=== PATIENT | male | born 1995 | race Caucasian/White ===

== ENCOUNTER 2024-09-13 09:35 | Outpatient (AMB) | payer MEDICARE, MEDICAID, SELFPAY ==
--- NOTE | 2024-09-13 09:41 | A.OFFPC_ITS ---
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 Transferring care from Dr Jonathan Lopez. Medical records have been requested and have not received. Electronics Engineering Manager Required: Yes Electronics Engineering Manager Language: Show Host Name: Mimi (mother) Information Interpreted: non-clinical & clinical (pt decline translators service, prefer mother to translate) Financial Analyst: Present Accompanied by: Mother Allergies No Known Allergies Allergy (Verified 09/13/24 10:01) Medication List - Last Reconciled 09/13/24 by RONNELL Garber lamotrigine 75 mg PO BID levocarnitine 330 mg PO DAILY Tobacco use date assessed: 09/13/24 Dental Screening Dental Screen Date: 09/13/24 Did you have a dental visit in the last 12 months?: No Did you have a dental problem in the last 6 months where you did not have access to dental care?: No Was dental information given to patient?: No HPI ELECTRICAL DEVELOPMENT ENGINEER- PE request HPI Details Previous PCP: Dr. Miryam Lopez Last visit:same Last PE: March 2024 Specialist: neurologist, speech therapist OBGYN:n/a Past medical history: moderate autism, cognitive delay, speech delay, carnitive deficiency Medications: lamotigine 75 (1/2x 150) po BID, Levocarnitine 330 mg daily Family HX: he was adopted from [place] at 3 years old-not sure about family background Problem: epilepsy-needs a referral to a specialist, speech delay started talker at 9 years old-speech therapist The patient is a 28 year old male with significant past medical history of autism, cognitive and speech delay Patient is presenting to establish care and physical exam Presenting with mother who interpreted for the patient ([place]er-speaking)-decline ASL services Reports that the patient is healthy, moved from [place] and need to be established with new providers There is also paperwork for services that needs to be completed by provider Denies shortness of breath, chest pain, heart palpitation, dizziness Denies abdominal pain or change in bowel habits Denies urinary symptoms Dentist:up to date Eye: up to date Snellen: Right: Left: Corrected vision: glasses STI screening:n/a Colonoscopy:n/a Pap Smer:n/a Flu: up to date COVID: up to date Tdap:up to date Diet:regular [facility] Medical History Carnitine deficiency Speech delay Cognitive developmental delay Epilepsy Autism Surgical History History of wisdom tooth extraction Social History Housing: Apartment Alcohol intake: never Patient Tobacco Use Status: Never used Tobacco e-Cigarette/Vaping Use: Never Used Second Hand Smoke Exposure: No service: No Current occupational status: disabled Cognitive needs: No Hearing needs: No Vision needs: Yes (Glasses) Questionnaire PHQ-9 Over the last 2 weeks, how often have you been bothered by any of the following problems? 1. Little interest or pleasure in doing things: not at all 2. Feeling down, depressed, or hopeless: not at all 3. Trouble falling or staying asleep, or sleeping too much: not at all 4. Feeling tired or having little energy: not at all 5. Poor appetite or overeating: not at all 6. Feeling bad about yourself - or that you are a failure or have let yourself or your family down: not at all 7. Trouble concentrating on things, such as reading the newspaper or watching television: not at all 8. Moving or speaking so slowly that other people could have noticed. Or the opposite - being so fidgety or restless that you have been moving around a lot more than usual: not at all 9. Thoughts that you would be better off or of hurting yourself in some way: not at all Total score: 0 Depression Screening Interpretation: Negative Depression Screening Done: Yes [id number] - PHQ-9 Billing: Yes Source: Developed by Drs. Primo Patel, Maria Del Carmen Hector, Malachi Honeycutt and colleagues, with an educational kylah from [employer]. Thrive Questionnaire Date Thrive assessed: 09/06/24 I am a: Parent/Caregiver What is your living situation today?: I have a steady place to live Within the past 12 months, did the food you bought not last and you didn't have the money to get more?: Never true Within the past 12 months, did you worry whether your food would run out before you got money to buy more?: Never true Do you have trouble paying for medicines?: I choose not to answer this question Do you have trouble getting transportation to medical appointments?: No Do you have trouble paying your heating and electricity bill?: I choose not to answer this question Do you have trouble taking care of your child, family member or friend?: No Do you have trouble with day-to-day activities such as bathing, preparing meals, shopping, managing finances, etc.?: No Are you currently unemployed and looking for a job?: No Are you interested in more education?: No Please select the resources that you would like help with: Transportation Currently or been in a relationship where the following occur: No concerns reported THRIVE Score: 0 AUDIT C Alcohol Use Questionnaire (AUDIT-C) 1. How often do you have a drink containing alcohol?: Never 3. How often do you have six or more drinks on one occasion?: Never Total Score: 0 KALYN-7 AMB Questionnaire KALYN-7 Date KALYN - 7 assessed: 09/13/24 Feeling nervous, anxious, or on edge: 0 = Not at all Not being able to stop or control worryin = Not at all Worrying too much about different things: 0 = Not at all Trouble relaxin = Not at all Being so restless that it is hard to sit still: 0 = Not at all Becoming easily annoyed or irritable: 0 = Not at all Feeling afraid as if something awful might happen: 0 = Not at all Total KALYN-7 score (0-4 normal; 5-9 mild; 10-14 moderate; 15-21 severe): 0 Source: Developed by Drs. Primo Patel, Maria Del Carmen Hector, Malachi Honeycutt and colleagues, with an educational kylah from [employer]. KALYN-7 Assessment Billing KALYN-7 Assessment Tool: KALYN-7 Assessment 98414 Review of Systems Const Details: Denies chills, Denies fatigue, Denies fever(s), Denies headache(s) and Denies weakness HEENT Denies change in vision, Denies dizziness, Denies headache(s), Denies hearing loss, Denies nasal congestion, Denies sinus pain, Denies sinus pressure and Denies sore throat Card Denies chest pain, Denies lightheadedness, Denies dyspnea and Denies other (palpitations) Resp Denies cough, Denies dyspnea and Denies wheezing GI Denies abdominal pain, Denies melena, Denies hematochezia, Denies change in bowel habits, Denies dyspepsia and Denies nausea Denies hematuria and Denies dysuria Musc Denies abnormal gait, Denies myalgias, Denies arthralgias, Denies numbness and Denies tingling Skin/Breast Denies rash, Denies unusual bruising and Denies wounds Neuro Denies abnormal gait, Denies dizziness, Denies headache(s), Denies memory loss, Denies numbness, Denies Sensory deficit (Neuro), Denies tingling and Denies weakness hx: of epilepsy-last episode during covid (2019) (full clonic atonic seizure activity) Psych Denies anxiety, Denies depression and Denies memory loss Endo Denies cold intolerance, Denies fatigue, Denies heat intolerance, Denies p olydipsia and Denies polyuria Pranav/Lymph Denies easy bleeding and Denies easy bruising Aller/Immun Denies wheezing Physical exam (Primary Care) Vital Signs: Last Vital Signs Temp 97.1 F 09/13/24 09:43 Pulse 90 09/13/24 09:43 BP 130/74 09/13/24 09:43 Pulse Ox 97 09/13/24 09:43 Oxygen Delivery Method Room Air 09/13/24 09:43 BMI result Body Mass Index 34.9 Tobacco/Smoking Status: Tobacco use Status Tobacco use date assessed 09/13/24 09/13/24 09:58 Patient Tobacco Use Status Never used Tobacco 09/13/24 09:58 e-Cigarette/Vaping Use Never Used 09/13/24 09:58 PHQ-9: PHQ-9 Score PHQ-9: Total score 0 09/13/24 10:59 Depression Screening Interpretation: Negative Thrive Assessment: Date of Thrive Assessment Date Thrive assessed 09/06/24 09/13/24 09:58 Currently or been in a relationship where the following occur: No concerns reported Const Other: General: no acute distress, well developed, alert and awake Nutritional Appearance: well nourished Orientation/consciousness: patient oriented x3 HENMT Head: Yes normocephalic and Yes atraumatic Ears: hearing grossly normal bilaterally and TM's normal bilaterally (narrow ear canals) General nose exam: Normal external nose present and Normal nares present Mouth: Normal oral and palatal mucosa present and moist mucous membranes Teeth and gingiva: dentition normal Throat: Yes oropharynx normal Eyes Pupils: Equal, round and reactive pupils present and Pupil accommodation reflex normal EOM: EOMs intact bilaterally Neck Neck: Yes normal visual inspection, Yes no lymphadenopathy and Yes trachea midline Thyroid: Thyroid normal Carotids: no bruits Lymphatic: no lymphadenopathy noted Resp Effort & Inspection: normal respiratory effort Auscultation: clear to auscultation bilaterally Cardio Rate: regular rate Rhythm: regular rhythm Heart sounds: S1 normal heart sound present, S2 normal heart sound present, no gallops, no murmurs and no rubs GI Palpation (GI): Abdomen is soft and nontender Auscultation: normal bowel sounds General: Yes no CVA tenderness Back/Spine/Pelvis Back: no CVA tenderness Cervical Spine: cervical ROM normal and No Cervical spine tenderness Thoracic/Lumbar Spine: thoraco-lumbar ROM normal, No pain with thoraco-lumbar ROM, No thoracic spinal tenderness and No lumbar spinal tenderness Skin General: warm and dry. Normal skin color. Normal skin turgor Lesions: no lesions Rashes: no rashes Nails: normal Neuro General: calm and cooperative, gait normal and CN's II-XI intact bilaterally Cranial nerves: Yes Equal, round and reactive pupils present Cognition (Neuro): delay cognition Gait exam (Neuro): Normal gait present Motor exam (neuro): 5/5 motor strength present throughout Sensory Exam: No Sensory deficit (Neuro) Deep tendon reflexes (DTR's): Right patellar reflex intensity grade: 2+ and Left patellar reflex intensity grade: 2+ Extrem General: Yes normal to inspection, No edema and No calf tenderness Psych Appearance: grossly normal Affect: normal affect Attitude: cooperative Thought process: Normal thought process present Coding Level of Care Code New Pt Prev Care 18-39yr([id number] Diagnoses Annual physical exam Z00.00 Autism F84.0 Nonintractable epilepsy with status epilepticus, unspecified epilepsy type G40.901 Epilepsy type: unspecified Intractability: not intractable Status epilepticus: with status epilepticus Cognitive developmental delay F81.9 Speech delay F80.9 Carnitine deficiency E71.40 Additional Codes KALYN-7 Assessment Billing - KALYN-7 Assessment Tool: KALYN-7 Assessment [id number] ([id number]) PHQ-9 - 84695 - PHQ-9 Billing: Yes ([id number]) Time Spent (min) 36 Assessment & Plan Assessment & Plan (1) Annual physical exam: Code(s): Z00.00 - Encounter for general adult medical examination without abnormal findings Category: Medical Plan: Patient is autistic with cognitive delay. Reviewed preventative guidelines with the patient mother. Patient had blood work done in 04/02/2024. We will repeat labs (2) Autism: Code(s): F84.0 - Autistic disorder Category: Medical Plan: Patient is [place]er-speaking. Patient is cooperative and follows simple instructions (3) Epilepsy: Code(s): G40.909 - Epilepsy, unspecified, not intractable, without status epilepticus Category: Medical Qualifiers: Epilepsy type: unspecified Intractability: not intractable Status epilepticus: with status epilepticus Qualified Code(s): G40.901 - Epilepsy, unspecified, not intractable, with status epilepticus Plan: The patient mother reported last seizure activity in 2019. Reports that the patient seizures are full tonic-clonic seizure activities. The patient is currently on lamotrigine 75 mg BID. Will re-fill prescription and check lamotrigine levels and also refer the patient to neurology (4) Cognitive developmental delay: Code(s): F81.9 - Developmental disorder of scholastic skills, unspecified Category: Medical Plan: Will refer to neurology (5) Speech delay: Code(s): F80.9 - Developmental disorder of speech and language, unspecified Category: Medical Plan: Will refer to speech therapy (6) Carnitine deficiency: Code(s): E71.40 - Disorder of carnitine metabolism, unspecified Category: Medical Plan: The patient is currently on levocarnitive 330 mg daily-will refill the medication Orders: Orders Complete Blood Count Auto Diff 09/13/24 Z00.00 - Encounter for general adult medical examination without abnormal findings Comprehensive Gardner. Panel Fast 09/13/24 Z00.00 - Encounter for general adult medical examination without abnormal findings TSH reflex Free T4 09/13/24 Z00.00 - Encounter for general adult medical examination without abnormal findings Lipid Panel 09/13/24 Z00. - Encounter for general adult medical examination without abnormal findings Vitamin D 25-OH Total 09/13/24 Z00.00 - Encounter for general adult medical examination without abnormal findings Glucose Fasting 09/13/24 Z00.00 - Encounter for general adult medical examination without abnormal findings UA CC w/rflx Micro + Cult 09/13/24 Z00.00 - Encounter for general adult medical examination without abnormal findings Lamotrigine Lamictal 09/13/24 G40.901 - Epilepsy, unspecified, not intractable, with status epilepticus Referrals Speech and Hearing Referral F80.9 - Developmental disorder of speech and language, unspecified, F81.9 - Developmental disorder of scholastic skills, unspecified, F84.0 - Autistic disorder Neurology Referral E71.40 - Disorder of carnitine metabolism, unspecified, F80.9 - Developmental disorder of speech and language, unspecified, F81.9 - Developmental disorder of scholastic skills, unspecified, G40.901 - Epilepsy, unspecified, not intractable, with status epilepticus Medications: New levocarnitine must administer with a meal/food 330 mg PO DAILY 90 tabs 3RF lamotrigine 75 mg (1/2 x 150 mg) PO BID 60 tabs 3RF
[2024-09-13 09:43] VITALS: BP 130/74; PULSE 90; TEMP 36.2; O2SAT 97; BMI 34.9
== END 2024-09-13 10:37 | disposition home or self-care (01) ==
DX: Z00.00 Encounter for general adult medical examination without abnormal findings (principal); G40.901 Epilepsy, unspecified, not intractable, with status epilepticus; E71.40 Disorder of carnitine metabolism, unspecified; F84.0 Autistic disorder; F81.9 Developmental disorder of scholastic skills, unspecified; F80.9 Developmental disorder of speech and language, unspecified

== ENCOUNTER → 2024-09-13 09:35 | Outpatient (BNVA) | payer MEDICARE, MEDICAID, SELFPAY | DX: Z00.00 Encounter for general adult medical examination without abnormal findings (principal); F84.0 Autistic disorder; G40.901 Epilepsy, unspecified, not intractable, with status epilepticus; F81.9 Developmental disorder of scholastic skills, unspecified; F80.9 Developmental disorder of speech and language, unspecified; E71.40 Disorder of carnitine metabolism, unspecified | CPT/HCPCS: 96127; 99385 ==

== ENCOUNTER 2024-09-15 09:47 | Outpatient (REF) | payer MEDICARE, MEDICAID, SELFPAY ==
[2024-09-18 11:39] LABS: TS Negative Control Passed; TS Panel A 1; TS Panel B 0; TS Positive Control Passed; TSpotTB Negative (Negative)
== END 2024-09-15 09:48 | disposition home or self-care (01) ==
LOC: HO.LAB 09:47
DX: Z11.1 Encounter for screening for respiratory tuberculosis (principal)
CPT/HCPCS: 36415; 86481

== ENCOUNTER 2025-01-01 07:30 | Outpatient (REF) | payer MEDICARE, MEDICAID, SELFPAY ==
[2025-01-01 08:01] LABS: MANUAL DIFF FLAG NO
[2025-01-01 08:38] LABS: Basophils Absolute Auto 0.1 X10*3/uL (0.0-0.2); Basophils Percent Auto 0.5 % (0-2); Eosinophils Absolute Auto 0.5 X10*3/uL (0.0-0.4); Eosinophils Percent Auto 4.4 % (0-4); Hematocrit 47.2 % (42.0-52.0); Hemoglobin 15.7 g/dl (14.0-18.0); Imm Gran Abs Auto 0.12 X10*3/uL (0.00-0.03); Lymphocytes Absolute Auto 4.5 X10*3/uL (1.2-4.9); Mean Corpuscular HGB Conc 33.3 g/dl (31.0-36.0); Mean Corpuscular Hemoglobin 28.8 pg (27.0-33.0); Mean Corpuscular Volume 86.4 fL (80.0-98.0); Mean Platelet Volume 9.1 fL (9.4-12.4); Monocytes Absolute Auto 0.8 X10*3/uL (0.1-1.2); Monocytes Percent Auto 6.3 % (2-11); Neutrophils Absolute Auto 5.9 x10*3/uL (2.0-8.3); Neutrophils Percent Auto 49.8 % (45-73); Platelet Count 343 X10*3/uL (160-400); Red Blood Count 5.46 X10*6/uL (4.60-5.80); Red Cell Distribution Width 12.5 % (11.0-16.0); White Blood Count 11.9 X10*3/uL (4.8-10.8)
[2025-01-01 09:03] LABS: Appearance Urine Clear; Color Urine Yellow; Glucose Urine UA Negative (Negative); Leukocyte Esterase Urine Negative (Negative); Nitrite Urine Negative (Negative); Specific Gravity - Urine <= 1.005 (1.005-1.025); Urine Blood Negative (Negative); Urine Ketones Negative (Negative); Urine Protein Negative (Neg-Trace)
[2025-01-01 09:22] LABS: Alanine Aminotransferase 66 U/L (0-40); Albumin Level 4.6 g/dL (3.5-5.0); Alkaline Phosphatase 52 U/L (39-117); Anion Gap 10 (12-20); Aspartate Amino Transferase 40 U/L (5-37); Bilirubin Total 0.6 mg/dL (0.0-1.0); Blood Urea Nitrogen 10 mg/dL (9-16); Calcium 9.5 mg/dL (8.4-10.2); Carbon Dioxide 25 mmol/L (22-29); Chloride 107 mmol/L (96-108); Cholesterol 193 mg/dL (<200); Estimated Glomerular Filt Rate > 60; Glucose Fasting 110 mg/dL (60-99); HDL Cholesterol 35 mg/dL (>40); LDL Cholesterol Calculated 132 mg/dL (<100); Potassium 3.2 mmol/L (3.3-5.1); Sodium 139 mmol/L (135-145); Total Protein 7.6 g/dL (6.5-8.0); Triglycerides 132 mg/dL (<150)
[2025-01-01 09:28] LABS: TSH reflex Free T4 1.36 uIU/mL (0.32-4.0); Vitamin D 25-OH Total 35.9 ng/mL (>30)
[2025-01-05 15:04] LABS: Lamotrigine Lamictal 7.9 mcg/mL (2.5-15.0)
== END 2025-01-01 07:31 | disposition home or self-care (01) ==
LOC: HO.LAB 07:30
DX: Z00.00 Encounter for general adult medical examination without abnormal findings (principal); G40.901 Epilepsy, unspecified, not intractable, with status epilepticus
CPT/HCPCS: 36415; 80053; 80061; 80175; 81003; 82306; 84443; 85025

== ENCOUNTER 2025-02-17 09:58 | Outpatient (REF) | payer MEDICARE, MEDICAID, SELFPAY ==
--- NOTE | ~2025-02-17 | US_ITS ---
EXAMINATION: US ABDOMEN HISTORY: R74.8 - Abnormal levels of other serum enzymes TECHNIQUE: Real-time grayscale ultrasound imaging of the abdomen was performed and images were reviewed. COMPARISON: There are no prior studies available for comparison. FINDINGS: Liver: The right lobe of the liver measures 15.5 cm in size. The left lobe of the liver measures 9.0 cm in size. The liver demonstrates normal homogeneous echotexture. No focal mass or intrahepatic biliary ductal dilatation is identified. There is normal hepatopedal flow in the portal vein. Gallbladder and biliary tree: The gallbladder is unremarkable, without evidence of calculi, wall thickening, or pericholecystic fluid. There is no sonographic Navarro sign. The common bile duct is normal in caliber measuring 4 mm. Kidneys: The right kidney measures 10.2 cm in length. The left kidney measures 9.4 cm in length. The kidneys are unremarkable, without evidence of masses, hydronephrosis, or calculi. Pancreas: The pancreatic head, neck, and body are unremarkable. The pancreatic tail is obscured by bowel gas. Spleen: The spleen is normal in size and contour, measuring 9.1 cm in length. Abdominal aorta and inferior vena cava: The visualized portions of the abdominal aorta and inferior vena cava are normal in caliber. There is no free fluid in the abdomen. US/US abdomen complete IMPRESSION: Unremarkable abdominal ultrasound. Electronically signed by: Primo Pyle MD 02/22/2025 02:03 PM EDT
== END 2025-02-17 09:59 | disposition home or self-care (01) ==
LOC: HO.US 09:58
DX: R74.8 Abnormal levels of other serum enzymes (principal)
CPT/HCPCS: 76700

== ENCOUNTER → 2025-02-17 10:09 | Outpatient (BNV) | payer MEDICARE, MEDICAID, SELFPAY | PROVIDERS: Visit Provider Radiology Diagnostic Radiology | DX: R74.01 Elevation of levels of liver transaminase levels (principal) | CPT/HCPCS: 76700 ==

== ENCOUNTER 2025-02-19 10:42 | Outpatient (REF) | payer MEDICARE, MEDICAID, SELFPAY ==
[2025-02-19 11:54] LABS: Alanine Aminotransferase 34 U/L (0-40); Albumin Level 4.7 g/dL (3.5-5.0); Alkaline Phosphatase 52 U/L (39-117); Aspartate Amino Transferase 26 U/L (5-37); Iron 74 mcg/dL (45-160); Percent Iron Saturation 24 % (15-50); Total Iron Binding Capacity 312 mcg/dL (228-428); Total Protein 7.6 g/dL (6.5-8.0); Unsaturated Iron Binding 238 ug/dL
[2025-02-21 08:32] LABS: HBS Num1 28.21 mIU/mL (0-7.99); HBc Num1 0.06 S/CO (0.00-0.79); HBsAGNum1 0.44 S/CO (0.00-0.99); Hepatitis A Antibody IgM 0.16 Index (0-0.79); Hepatitis B Surface Antigen Negative (Negative); ~HepC Num1 0.10 S/CO (0.00-0.79); ~Hepatitis A Antibody IgM Nonreactive (Nonreactive); ~Hepatitis B Surface Antibody REACTIVE (Nonreactive); ~Hepatitis C Antibody Nonreactive (Nonreactive)
[2025-02-22 23:29] LABS: Prot Elec - Albumin 4.7 g/dL (3.8-4.8); Prot Elec - Alpha1 0.3 g/dL (0.2-0.3); Prot Elec - Alpha2 0.7 g/dL (0.5-0.9); Prot Elec - Beta 1 0.5 g/dL (0.4-0.6); Prot Elec - Beta 2 0.4 g/dL (0.2-0.5); Prot Elec - Gamma 1.1 g/dL (0.8-1.7); Prot Elec - Total Protein 7.6 g/dL (6.1-8.1)
[2025-02-24 10:04] LABS: Anti Nuclear Antibody Screen NEGATIVE (NEGATIVE)
== END 2025-02-19 10:43 | disposition home or self-care (01) ==
LOC: HO.LAB 10:42
DX: Z00.00 Encounter for general adult medical examination without abnormal findings (principal); Z11.59 Encounter for screening for other viral diseases; R74.8 Abnormal levels of other serum enzymes; Z13.1 Encounter for screening for diabetes mellitus
CPT/HCPCS: 36415; 80076; 82390; 82947; 83540; 84165; 86015; 86038; 86704; 86706; 86709; 86803; 87340

== ENCOUNTER 2025-02-26 07:56 | Outpatient (REF) | payer MEDICARE, MEDICAID, SELFPAY ==
[2025-02-26 08:26] LABS: MANUAL DIFF FLAG NO
[2025-02-26 09:05] LABS: Hematocrit 47.2 % (42.0-52.0); Hemoglobin 16.0 g/dl (14.0-18.0); Imm Gran Abs Auto 0.02 X10*3/uL (0.00-0.03); Imm Gran Pct Auto 0.2 % (0.0-0.4); Lymphocytes Absolute Auto 4.4 X10*3/uL (1.2-4.9); Mean Corpuscular HGB Conc 33.9 g/dl (31.0-36.0); Mean Corpuscular Hemoglobin 28.9 pg (27.0-33.0); Mean Corpuscular Volume 85.2 fL (80.0-98.0); NRBC Abs Auto 0.000 X10*3/uL (0.0-0.012); NRBC Pct Auto 0.0 /100WBC (0.0-0.2); Platelet Count 346 X10*3/uL (160-400); Red Blood Count 5.54 X10*6/uL (4.60-5.80); White Blood Count 10.5 X10*3/uL (4.8-10.8)
[2025-02-26 09:51] LABS: Alanine Aminotransferase 37 U/L (0-40); Albumin Level 4.9 g/dL (3.5-5.0); Alkaline Phosphatase 58 U/L (39-117); Anion Gap 16 (12-20); Blood Urea Nitrogen 13 mg/dL (9-16); Calcium 10.0 mg/dL (8.4-10.2); Carbon Dioxide 24 mmol/L (22-29); Chloride 104 mmol/L (96-108); Cholesterol 188 mg/dL (<200); Estimated Glomerular Filt Rate > 60; HDL Cholesterol 36 mg/dL (>40); Potassium 3.2 mmol/L (3.3-5.1); Sodium 141 mmol/L (135-145); Total Protein 7.9 g/dL (6.5-8.0); Triglycerides 95 mg/dL (<150)
[2025-02-26 09:58] LABS: Aspartate Amino Transferase 29 U/L (5-37)
[2025-02-26 15:06] LABS: Appearance Urine Clear; Glucose Urine UA Negative (Negative); PH 8.0 (5.0-9.0); Specific Gravity - Urine 1.010 (1.005-1.025)
== END 2025-02-26 07:57 | disposition home or self-care (01) ==
LOC: HO.LAB 07:56
DX: G40.901 Epilepsy, unspecified, not intractable, with status epilepticus (principal); R74.8 Abnormal levels of other serum enzymes; F84.0 Autistic disorder; F80.9 Developmental disorder of speech and language, unspecified; E78.5 Hyperlipidemia, unspecified; D72.829 Elevated white blood cell count, unspecified; F81.9 Developmental disorder of scholastic skills, unspecified
CPT/HCPCS: 36415; 80053; 80061; 81003; 84443; 85025

== ENCOUNTER 2025-03-16 09:41 | Outpatient (AMB) | payer MEDICARE, MEDICAID, SELFPAY ==
[2025-03-16 09:50] VITALS: BP 130/62; PULSE 80; RESP 18; TEMP 36.3; O2SAT 94; BMI 34.6
--- NOTE | 2025-03-16 09:50 | A.OFFPC_ITS ---
Vital Signs 03/16/25 09:50 Height 5 ft 0.24 in Weight 178 lb 6 oz BMI 34.6 BP 130/62 Blood Pressure Location Lt brachial Position Sitting Respiration 18 Pulse 80 Pulse Source Pulse Oximeter Temp 97.3 F Temp Source Temporal Artery Scan Pulse Oximetry (%) 94 Oxygen Delivery Method Room Air Intake Visit Reasons: 6 month f/u Milk Processing Worker Required: No Accompanied by: Self / Same As Patient Allergies No Known Allergies Allergy (Verified 03/16/25 12:35) Medication List - Last Reconciled 03/16/25 by RONNELL Garber atorvastatin (Lipitor) 10 mg PO BEDTIME lamotrigine 150 mg PO BID levocarnitine 330 mg PO DAILY Tobacco use date assessed: 03/16/25 Dental Screening Dental Screen Date: 03/16/25 Did you have a dental visit in the last 12 months?: Yes Did you have a dental problem in the last 6 months where you did not have access to dental care?: No Was dental information given to patient?: Patient has dentist HPI 6 month f/u HPI Details The patient is a 29-year-old male presenting with management of seizure disorder. The patient has been under the care of a neurologist and is advised to have annual follow-ups to ensure continuity of care in case of future episodes. There have been no recent episodes, and the neurologist has not recommended any EEG unless an episode occurs. The patient is autistic and has cognitive developmental delay. He is accompanied by his father who provided information about her care. The patient also presents with hyperlipidemia, with LDL cholesterol levels remaining stable at 133 mg/dL, showing minimal change from the previous measurement of 132 mg/dL. Dietary modifications have been attempted, but the LDL levels have not decreased significantly. A low-dose statin has been considered as a potential intervention to manage the cholesterol levels. Additionally, the patient has excessive amount of cerumen in bilateral ears, particularly in one ear. The use of Debrox drops has been recommended to soften the earwax, followed by irrigation to clear the impaction. [facility] appt for dental for special needs in [facility] History Carnitine deficiency Speech delay Cognitive developmental delay Epilepsy Autism Surgical History History of wisdom tooth extraction Social History Housing: Apartment Alcohol intake: never Patient Tobacco Use Status: Never used Tobacco e-Cigarette/Vaping Use: Never Used Second Hand Smoke Exposure: No service: No Current occupational status: disabled Cognitive needs: No Hearing needs: No Vision needs: Yes (Glasses) Questionnaire PHQ-9 Over the last 2 weeks, how often have you been bothered by any of the following problems? 1. Little interest or pleasure in doing things: not at all 2. Feeling down, depressed, or hopeless: not at all 3. Trouble falling or staying asleep, or sleeping too much: not at all 4. Feeling tired or having little energy: not at all 5. Poor appetite or overeating: not at all 6. Feeling bad about yourself - or that you are a failure or have let yourself or your family down: not at all 7. Trouble concentrating on things, such as reading the newspaper or watching television: not at all 8. Moving or speaking so slowly that other people could have noticed. Or the opposite - being so fidgety or restless that you have been moving around a lot more than usual: not at all 9. Thoughts that you would be better off or of hurting yourself in some way: not at all Total score: 0 Depression Screening Interpretation: Negative Depression Screening Done: Yes Source: Developed by Drs. Primo Patel, Maria Del Carmen Hector, Malachi Honeycutt and colleagues, with an educational kylah from [employer]. Thrive Questionnaire Date Thrive assessed: 03/16/25 I am a: Parent/Caregiver What is your living situation today?: I have a steady place to live Within the past 12 months, did the food you bought not last and you didn't have the money to get more?: Never true Within the past 12 months, did you worry whether your food would run out before you got money to buy more?: Never true Do you have trouble paying for medicines?: I choose not to answer this question Do you have trouble getting transportation to medical appointments?: No Do you have trouble paying your heating and electricity bill?: I choose not to answer this question Do you have trouble taking care of your child, family member or friend?: No Do you have trouble with day-to-day activities such as bathing, preparing meals, shopping, managing finances, etc.?: No Are you currently unemployed and looking for a job?: No Are you interested in more education?: No Please select the resources that you would like help with: Transportation Currently or been in a relationship where the following occur: No concerns reported THRIVE Score: 0 AUDIT C Alcohol Use Questionnaire (AUDIT-C) 1. How often do you have a drink containing alcohol?: Never 3. How often do you have six or more drinks on one occasion?: Never Total Score: 0 KALYN-7 AMB Questionnaire KALYN-7 Date KALYN - 7 assessed: 03/16/25 Feeling nervous, anxious, or on edge: 0 = Not at all Not being able to stop or control worryin = Not at all Worrying too much about different things: 0 = Not at all Trouble relaxin = Not at all Being so restless that it is hard to sit still: 0 = Not at all Becoming easily annoyed or irritable: 0 = Not at all Feeling afraid as if something awful might happen: 0 = Not at all Total KALYN-7 score (0-4 normal; 5-9 mild; 10-14 moderate; 15-21 severe): 0 Source: Developed by Drs. Primo Patel, Maria Del Carmen Hector, Malachi Honeycutt and colleagues, with an educational kylah from [employer]. Review of Systems Const Details: Limited information because the patient his able to convey his symptoms independently Denies body aches, Denies chills, Denies fever(s), Denies headache(s) and Denies poor appetite Eyes Reports no additional complaints ENT Denies dysphagia, Denies dizziness, Denies headache(s) and Denies odynophagia Card Denies chest pain, Denies syncope, Denies edema, Denies irregular heart rhythm, Denies lightheadedness and Denies dyspnea Resp Denies cough and Denies dyspnea GI Denies abdominal pain, Denies constipation, Denies dysphagia, Denies diarrhea, Denies nausea, Denies odynophagia and Denies vomiting Reports no additional complaints Musc Reports no additional complaints and Denies abnormal gait Skin/Breast Reports system reviewed and no additional complaints, except as documented Neuro Denies abnormal gait, Denies dizziness, Denies syncope and Denies headache(s) Psych Reports no additional complaints Physical exam (Primary Care) Vital Signs: Last Vital Signs Temp 97.3 F 03/16/25 09:50 Pulse 80 03/16/25 09:50 Resp 18 03/16/25 09:50 BP 130/62 03/16/25 09:50 Pulse Ox 94 03/16/25 09:50 Oxygen Delivery Method Room Air 03/16/25 09:50 BMI result Body Mass Index 34.6 Tobacco/Smoking Status: Tobacco use Status Tobacco use date assessed 03/16/25 03/16/25 09:58 Patient Tobacco Use Status Never used Tobacco 03/16/25 09:58 e-Cigarette/Vaping Use Never Used 03/16/25 09:58 PHQ-9: PHQ-9 Score PHQ-9: Total score 0 03/16/25 17:21 Depression Screening Interpretation: Negative Thrive Assessment: Date of Thrive Assessment Date Thrive assessed 03/16/25 03/16/25 09:58 Currently or been in a relationship where the following occur: No concerns reported Const Other: Assessment limited due to the patient cognitive impairment General: cooperative, healthy appearing, comfortable and no acute distress HENMT Head: Yes normocephalic Ears: Abnormal EAC present excessive cerumen bilateral General nose exam: Normal external nose present Eyes General: appearance normal, both eyes and all related structures Conjunctivae: conjunctivae normal Neck Neck: Yes full ROM and Yes no lymphadenopathy Resp Effort & Inspection: normal respiratory effort Auscultation: clear to auscultation bilaterally, no crackles, no rales, no rhonchi and no wheezes Cardio Rate: regular rate Rhythm: regular rhythm GI Inspection: Yes obesity Palpation (GI): Soft to palpation and nontender Auscultation: normal bowel sounds General: Yes no CVA tenderness Back/Spine/Pelvis Back: no CVA tenderness Skin General skin exam: no rashes or lesions noted Neuro General: no focal motor deficits Gait exam (Neuro): Normal gait present Extrem General: Yes normal to inspection, Yes full ROM and No edema Psych Affect: normal affect Attitude: cooperative Insight: Good insight present (Psych) Judgement: Good judgement present (Psych) Results Reviewed Results Reviewed: Laboratory Tests 02/19/25 02/26/25 10:57 08:25 WBC 10.5 RBC 5.54 Hgb 16.0 Hct 47.2 MCV 85.2 MCH 28.9 MCHC 33.9 RDW 12.4 Plt Count 346 Sodium 141 Potassium 3.2 L Chloride 104 Carbon Dioxide 24 Anion Gap 16 BUN 13 Creatinine 0.99 Estim Creat Clear Calc Not Reportable Estimated GFR > 60 Fasting Glucose 104 H Calcium 10.0 Iron 74 TIBC 312 % Saturation 24 Unsat Iron Binding 238 Total Bilirubin 0.7 Direct Bilirubin 0.2 AST 29 ALT 37 Alkaline Phosphatase 58 Total Protein 7.9 Albumin 4.9 Albumin (PEP) 4.7 Jexnm-7-Xecqtdonk 0.3 Xdihg-7-Ovzqgyqqd 0.7 Pmaf-1-Xivqanzj 0.5 Slrf-2-Ohdkwonf 0.4 Triglycerides 95 Cholesterol 188 LDL Cholesterol, Calc 133 H HDL Cholesterol 36 L TSH 1.38 Coding Level of Care Code Est Pt Level 4 (83666) Diagnoses Hyperlipidemia, unspecified hyperlipidemia type E78.5 Hyperlipidemia type: unspecified Carnitine deficiency E71.40 Elevated liver enzymes R74.8 Hypokalemia E87.6 Nonintractable epilepsy with status epilepticus, unspecified epilepsy type G40.901 Epilepsy type: unspecified Intractability: not intractable Status epilepticus: with status epilepticus Cognitive developmental delay F81.9 Autism F84.0 Excessive cerumen in both ear canals H61.23 Time Spent (min) 41 Assessment & Plan Assessment & Plan (1) HLD (hyperlipidemia): Code(s): E78.5 - Hyperlipidemia, unspecified Category: Medical Qualifiers: Hyperlipidemia type: unspecified Qualified Code(s): E78.5 - Hyperlipidemia, unspecified Plan: LDL 133 increase by 1 point from 08/12December, Encouraged low-cholesterol diet and activity as tolerated Start atorvastatin 10 mg at bedtime We will recheck lipid panel in six-month (2) Carnitine deficiency: Code(s): E71.40 - Disorder of carnitine metabolism, unspecified Category: Medical Plan: Continue Levocarnitine 330 mg daily (3) Elevated liver enzymes: Code(s): R74.8 - Abnormal levels of other serum enzymes Category: Medical Plan: The patient liver enzymes in 01/01/2025 showed AST 40, ALT 66. Due to the patient cognitive delay and his inability to convey GI symptoms correctly, was evaluated extensively. A liver panel was completed the patient also had an ultrasound of the abdomen that all came back negative. Since then the patient liver enzymes have normalized. We will continue to monitor (4) Hypokalemia: Code(s): E87.6 - Hypokalemia Category: Medical Plan: Potassium 3.2 Encouraged foods that are high in potassium (5) Epilepsy: Code(s): G40.909 - Epilepsy, unspecified, not intractable, without status epilepticus Category: Medical Qualifiers: Epilepsy type: unspecified Intractability: not intractable Status epilepticus: with status epilepticus Qualified Code(s): G40.901 - Epilepsy, unspecified, not intractable, with status epilepticus Plan: The patient is advised to continue annual follow-ups with a neurologist to monitor the seizure disorder. No EEG is required unless there is a recurrence of seizure episodes. Continue lamotrigine 150 mg b.i.d. Follow up with Neurology as scheduled (6) Cognitive developmental delay: Code(s): F81.9 - Developmental disorder of scholastic skills, unspecified Category: Medical Plan: Continue supportive care to aid in improving cognitive, motor, language and adaptive outcomes (7) Autism: Code(s): F84.0 - Autistic disorder Category: Medical Plan: Same as above (8) Excessive cerumen in both ear canals: Code(s): H61.23 - Impacted cerumen, bilateral Category: Medical Plan: Debrox ear drops kit we will be purchased by his father. The process was explained in detail. Follow up with office for any concerns Orders: Orders Lipid Panel 6 Months D72.829 - Elevated white blood cell count, unspecified, E71.40 - Disorder of carnitine metabolism, unspecified, E78.5 - Hyperlipidemia, unspecified, F81.9 - Developmental disorder of scholastic skills, unspecified, F84.0 - Autistic disorder, G40.901 - Epilepsy, unspecified, not intractable, with status epilepticus, R74.8 - Abnormal levels of other serum enzymes TSH reflex Free T4 6 Months D72.829 - Elevated white blood cell count, unspecified, E71.40 - Disorder of carnitine metabolism, unspecified, E78.5 - Hyperlipidemia, unspecified, F81.9 - Developmental disorder of scholastic skills, unspecified, F84.0 - Autistic disorder, G40.901 - Epilepsy, unspecified, not intractable, with status epilepticus, R74.8 - Abnormal levels of other serum enzymes Comprehensive [place]. Panel Fast 6 Months D72.829 - Elevated white blood cell count, unspecified, E71.40 - Disorder of carnitine metabolism, unspecified, E78.5 - Hyperlipidemia, unspecified, F81.9 - Developmental disorder of scholastic skills, unspecified, F84.0 - Autistic disorder, G40.901 - Epilepsy, unspecified, not intractable, with status epilepticus, R74.8 - Abnormal levels of other serum enzymes UA CC w/rflx Micro + Cult 6 Months D72.829 - Elevated white blood cell count, unspecified, E71.40 - Disorder of carnitine metabolism, unspecified, E78.5 - Hyperlipidemia, unspecified, F81.9 - Developmental disorder of scholastic skills, unspecified, F84.0 - Autistic disorder, G40.901 - Epilepsy, unspecified, not intractable, with status epilepticus, R74.8 - Abnormal levels of other serum enzymes Complete Blood Count Auto Diff 6 Months D72.829 - Elevated white blood cell count, unspecified, E71.40 - Disorder of carnitine metabolism, unspecified, E78.5 - Hyperlipidemia, unspecified, F81.9 - Developmental disorder of scholastic skills, unspecified, F84.0 - Autistic disorder, G40.901 - Epilepsy, unspecified, not intractable, with status epilepticus, R74.8 - Abnormal levels of other serum enzymes Medications: New atorvastatin (Lipitor) 10 mg PO BEDTIME 90 tabs 3RF atorvastatin (Lipitor) 10 mg PO BEDTIME 30 tabs 3RF
== END 2025-03-16 10:45 | disposition home or self-care (01) ==
LOC: HO.HMCH 09:42
DX: E78.5 Hyperlipidemia, unspecified (principal); E71.40 Disorder of carnitine metabolism, unspecified; G40.901 Epilepsy, unspecified, not intractable, with status epilepticus; H61.23 Impacted cerumen, bilateral; R74.8 Abnormal levels of other serum enzymes; E87.6 Hypokalemia; F81.9 Developmental disorder of scholastic skills, unspecified; F84.0 Autistic disorder

== ENCOUNTER → 2025-03-16 09:41 | Outpatient (BNVA) | payer MEDICARE, MEDICAID, SELFPAY | DX: H61.23 Impacted cerumen, bilateral (principal); G40.909 Epilepsy, unspecified, not intractable, without status epilepticus; E78.5 Hyperlipidemia, unspecified; E71.40 Disorder of carnitine metabolism, unspecified; R74.8 Abnormal levels of other serum enzymes; E87.6 Hypokalemia; G40.901 Epilepsy, unspecified, not intractable, with status epilepticus; F81.9 Developmental disorder of scholastic skills, unspecified; F84.0 Autistic disorder | CPT/HCPCS: 96127; 99212 ==